=== PATIENT | female | born 1960 | race Caucasian/White ===

== ENCOUNTER → 2017-05-12 | Outpatient (CLI) | payer MEDICARE ==
[~2017-05-12] MED LIST: CYCLOBENZAPRINE10 MG PO; LEVAQUIN250 MG PO; LORTAB 7.5/3251 TAB PO; MAXZIDE 25 MG-31 TAB PO; XANAX 1MG TABLET1 MG PO
--- NOTE | 2017-05-12 10:48 | RADIOLOGY REPORT PS360 ---
EXAM: LUMBAR SPINE 5 VIEWS HISTORY: LOW BACK PAINW/RADIATING TO BOTTOM OF BUTTOCKS ORDERING PHYSICIAN: Amarjit Rome MD PATIENT AGE: 56 years COMPARISON: None FINDINGS: There is mild levoscoliosis of the lumbar spine measuring 19 degrees. No fracture or dislocation is evident. Degenerative disc disease is present at L3-L4. Mild facet arthritic changes are present at L5-S1 and there are prominent right paravertebral hypertrophic changes at L4-L5. No fracture or dislocation. No lytic or blastic change. Incidental vascular calcifications. The SI joints show mild degenerative change. IMPRESSION: 1. Scoliosis with degenerative disc disease at L3-L4 and facet arthritic change at L4-5 2. No acute fracture
== END ==
LOC: RAD 10:09
DX: M54.5 Low back pain (principal); M53.3 Sacrococcygeal disorders, not elsewhere classified

== ENCOUNTER → 2017-05-18 | Outpatient (CLI) | payer MEDICARE ==
--- NOTE | 2017-05-19 06:00 | RADIOLOGY REPORT PS360 ---
MRI-L-SPINE W/O, MRI-3D RENDERING/MYELOGRAM HISTORY: Low back pain with bilateral buttock and leg pain with numbness and tingling BACK PAIN ORDERING PHYSICIAN: Amarjit Rome MD PATIENT AGE: 56 years COMPARISON: CT scan of 03/15/2014 TECHNIQUE: Standard multiplanar multiecho sequences are performed without contrast. 3-D MIP and myelographic images are also rendered and reviewed FINDINGS: There is mild lumbar scoliosis convex left measuring 12 degrees. The spinal cord ends at the L1 level. There is normal alignment. L1-L2 and L2-L3 have an unremarkable appearance. L3-L4: There is mild decrease in the disc height with minimal bulging disc along with facet and ligamentum flavum hypertrophy with mild bilateral lateral recess narrowing and mild bilateral foraminal narrowing. L4-L5: Facet and ligamentum flavum hypertrophy with mild left lateral recess and foraminal narrowing. The facet hypertrophic changes more prominent on the right similar to the previous CT scan of 03/15/2014 L5-S1: Mild facet hypertrophic change with mild bilateral foraminal narrowing. No extruded herniated disc or canal stenosis. There is a small T2 hyperintensity involving the L2 vertebral body inferiorly at 7 mm nonspecific IMPRESSION: 1. Mild lumbar spondylosis with facet and ligamentum hypertrophy/arthritic change with mild bilateral lateral recess and foraminal narrowing at L3-L4, mild left lateral recess and foraminal narrowing at L4-L5, and mild bilateral foraminal narrowing at L5-S1. 2. Mild lumbar scoliosis convex left 3. No disc herniation or canal stenosis
== END ==
LOC: RAD 13:24
DX: M54.5 Low back pain (principal)

== ENCOUNTER → 2017-06-17 | Outpatient (CLI) | payer MEDICARE ==
--- NOTE | 2017-06-17 15:22 | RADIOLOGY REPORT PS360 ---
PELVIS AP ONLY HISTORY: Fall with injury and pain S/P FALL, RT PELVIC PAIN ORDERING PHYSICIAN: Amarjit Roem MD PATIENT AGE: 56 years COMPARISON: None FINDINGS: No fracture or dislocation is evident. No significant degenerative change. No lytic or blastic change. The SI joints have an unremarkable appearance. Unremarkable soft tissues. IMPRESSION: Negative pelvis.
== END ==
LOC: RAD 15:00
DX: R10.2 Pelvic and perineal pain (principal)